=== PATIENT | female | born 1965 | race Caucasian/White ===

== ENCOUNTER 2017-01-20 19:00 | Inpatient (IN) | payer BC ==
[~2017-01-20] VITALS: Ht 170.2 cm; Wt 105.4 kg
--- NOTE | ~2017-01-20 | DS ---
PATIENT'S NAME: BRYNN CAM [facility] AGE: 51 Y [address] ROOM: [place] [id number] LOCATION: GPCU ADMIT DATE: 01/20/2017 Discharge Summary DISCHARGE DATE: 01/22/2017 FAMILY PHYSICIAN: PHYSICIAN, NO ATTENDING PHYSICIAN: Sanchez Justin PRIMARY DIAGNOSES: 1. Acute encephalopathy. 2. Acute kidney injury. 3. Essential hypertension. 4. Chronic pain syndrome. 5. Fibromyalgia. 6. Morbid obesity. 7. Moderate protein-calorie malnutrition. 8. Depression/anxiety. 9. Chronic constipation. 10. Gastroesophageal reflux disease. 11. Seasonal allergies. OPERATIONS/PROCEDURES: Right upper quadrant abdominal ultrasound performed on 01/21/2017. HISTORY OF PRESENTING ILLNESS AND REASON FOR ADMISSION: Please refer to the H and P dictated on 01/20/2017. HOSPITAL COURSE: The patient was admitted to the hospital as noted above with a presumptive diagnosis of acute encephalopathy and acute kidney injury. She was hemodynamically stable over the course of her hospital stay. At the point of her evaluation, there was concern for a cholestatic process, although imaging studies were not suggestive of cholelithiasis or acute cholecystitis. Right upper quadrant abdominal ultrasound demonstrated a distended gallbladder but no evidence for obstruction. Liver function tests were within normal limits. She received IV fluids and supportive cares. Her home opioid regimen was withheld at least initially. She received aggressive IV fluids, and her renal function improved. By the third day of her hospital stay, her creatinine had resolved to 2.0, and she is making good amounts of urine. Although her blood pressures were a little bit labile, she was ultimately placed back on Losartan. There was some clinical suspicion for inadvertent medication overdose. I had confronted the patient about that, and she insisted that she did not PATIENT'S NAME: BRYNN CAM [facility] AGE: 51 Y [address] ROOM: [place] [id number] LOCATION: GPCU ADMIT DATE: 01/20/2017 Discharge Summary DISCHARGE DATE: 01/22/2017 FAMILY PHYSICIAN: , NO ATTENDING PHYSICIAN: Sanchez Justin intentionally take the medications to cause self-harm. It was recommended that the fentanyl dose be reduced to 25 mcg, and she tolerated that fairly well. She was placed back on her home regimen of [place] but also at a lower dose. She was strongly recommended for no nonsteroidal antiinflammatory drugs. By the end of the third day of her hospital stay, it was felt she would be stable enough for discharge home with plans for close clinical followup with her primary care provider, Dr. Zambrano, as well as to assume followup at a [facility]. DISCHARGE INSTRUCTIONS: DIET: Regular as tolerated. ACTIVITY: As tolerated. MEDICATIONS: 1. Amitriptyline 25 mg p.o. q.h.s. 2. Amlodipine 10 mg p.o. daily. 3. Fentanyl patch 25 mcg apply and change q.72 hours. 4. Fluoxetine 40 mg p.o. daily. 5. Fluticasone one spray each nostril daily. 6. Symbicort 160/4.5 two puffs p.o. b.i.d. 7. Gabapentin 300 mg p.o. t.i.d. 8. Singulair 10 mg p.o. q.h.s. 9. Omeprazole 20 mg p.o. daily. 10. Spiriva 1 puff daily. 11. [place] 5/325 one tab p.o. q.6 hours p.r.n. pain. 12. MiraLax 17 g p.o. daily. 13. Fluocinolone topical applied topically 3 times a day as needed. 14. Losartan 50 mg p.o. daily. 15. Albuterol HFA 2 puffs p.o. q.6 hours p.r.n. pain. 16. Depo-Provera 150 mg IM q.3 months. FOLLOWUP: She will follow up with Dr. Laura (or Dr. Zambrano) in 3 to 5 days. She will have a repeat BMP to be followed up at the [facility]. We will also establish care at the [facility] in [place] within the next two weeks. CONDITION ON DISCHARGE: Fair. Total time spent on discharge process 45 minutes. PATIENT'S NAME: BRYNN CAM [facility] AGE: 51 Y [address] ROOM: [place] [address] LOCATION: GPCU ADMIT DATE: 01/20/2017 Discharge Summary DISCHARGE DATE: 01/22/2017 FAMILY PHYSICIAN: PHYSICIANMORGAN ATTENDING PHYSICIAN: Sanchez Justin DILMA MD CELESTINO PICHARDO/neryl /[id number] d: 01/23/17 0423 t: 01/25/17 1726, DISCHARGE SUMMARY
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
[2017-01-20] MEDS ORDERED: IBUPROFEN800 MG PO (20:23)
[2017-01-20] MEDS ORDERED: PROZAC20 MG PO (20:23)
[2017-01-20] MEDS ORDERED: ATIVAN 1 MG1 MG PO ×2 (20:24)
[2017-01-20] MEDS ORDERED: LASIX20 MG PO (20:25)
[2017-01-20] MEDS ORDERED: SKELAXIN800 MG PO (20:26)
[2017-01-20] MEDS ORDERED: NORVASC10 MG PO (20:27)
[2017-01-20] MEDS ORDERED: MIRALAX17 GM PO (20:27)
[2017-01-20] MEDS ORDERED: SINGULAIR10 MG PO (20:28)
[2017-01-20] MEDS ORDERED: FLUOCINOLONE AC60 ML TOP (20:29)
[2017-01-20] MEDS ORDERED: COZAAR100 MG PO (20:30)
[2017-01-20] MEDS ORDERED: HYDRODIURIL25 MG PO (20:30)
[2017-01-20] MEDS ORDERED: SPIRIVA HANDIHA1 KIT INH (20:31)
[2017-01-20] MEDS ORDERED: PRILOSEC20 MG PO (20:31)
[2017-01-20] MEDS ORDERED: SYMBICORT 16010.2 GM INH (20:32)
[2017-01-20] MEDS ORDERED: FLONASE 50 MCG/16 GM NOSE (20:32)
[2017-01-20] MEDS ORDERED: PROVENTIL OR V6.7 GM INH ×2 (20:33→20:34)
[2017-01-20] MEDS ORDERED: DESYREL100 MG PO (20:35)
[2017-01-20] MEDS ORDERED: DEPO-PROVE150 MG/11 IM (20:40)
[2017-01-20 20:55] LABS: BASOPHIL % 0.5 %; EOSINOPHIL # 0.2 K/uL (0.0-0.5); EOSINOPHIL % 3.3 %; HEMATOCRIT 27.4 % (33.0-46.0); LYMPHOCYTE # 1.1 K/uL (0.8-4.0); LYMPHOCYTE % 16.6 %; MCH 29.8 pg (27.0-34.0); MCHC 32.8 gm/dL (32.0-36.5); MCV 90.7 fl (83.0-98.0); MONOCYTE # 0.5 K/uL (0.0-1.0); MONOCYTE % 8.3 %; MPV 8.8 fl (9.4-12.4); NEUTROPHIL # (ANC) 4.5 K/uL (1.8-7.8); NEUTROPHIL % 71.3 %; NRBC % 0 /100WBC (0-0.00); PLATELET COUNT 193 K/uL (150-450); RBC 3.02 M/uL (3.50-5.50); RDW-CV 13.2 % (11.9-14.6); WBC 6.4 K/uL (4.0-11.0)
[2017-01-20 21:10] LABS: ALBUMIN 3.2 gm/dL (3.5-5.0); ANION GAP 14.7 (10.0-19.0); CALCIUM 7.7 mg/dL (8.5-10.5); MAGNESIUM 2.4 mg/dL (1.8-2.6); PHOSPHORUS 5.2 mg/dL (2.5-4.9); POTASSIUM 3.7 mMol/L (3.7-5.1); TOTAL BILIRUBIN 0.3 mg/dL (0.0-1.5); TOTAL PROTEIN 6.5 g/dL (6.0-8.4)
[2017-01-20 21:11] LABS: CREATININE 5.4 mg/dL (0.5-1.1)
[2017-01-21 05:51] LABS: BASOPHIL % 0.6 %; EOSINOPHIL # 0.2 K/uL (0.0-0.5); EOSINOPHIL % 4.3 %; HEMATOCRIT 27.4 % (33.0-46.0); HEMOGLOBIN 8.9 g/dL (10.0-15.0); IMMATURE GRANULOCYTE % 0.4 %; LYMPHOCYTE # 1.1 K/uL (0.8-4.0); LYMPHOCYTE % 22.3 %; MCH 29.4 pg (27.0-34.0); MCHC 32.5 gm/dL (32.0-36.5); MCV 90.4 fl (83.0-98.0); MONOCYTE # 0.6 K/uL (0.0-1.0); MONOCYTE % 11.8 %; MPV 8.8 fl (9.4-12.4); NEUTROPHIL # (ANC) 2.9 K/uL (1.8-7.8); NEUTROPHIL % 60.6 %; NRBC % 0 /100WBC (0-0.00); PLATELET COUNT 189 K/uL (150-450); RBC 3.03 M/uL (3.50-5.50); WBC 4.9 K/uL (4.0-11.0)
[2017-01-21 06:10] LABS: ANION GAP 12.6 (10.0-19.0); CALCIUM 7.8 mg/dL (8.5-10.5); CREATININE 3.9 mg/dL (0.5-1.1); POTASSIUM 3.6 mMol/L (3.7-5.1)
[2017-01-21] MEDS ORDERED: NEURONTIN300 MG PO (11:11)
[2017-01-21] MEDS ORDERED: ELAVIL25 MG PO (11:12)
[2017-01-21] MEDS ORDERED: NORCO 10-325 T1 EACH PO (11:12)
[2017-01-21] MEDS ORDERED: DURAGESIC 100100 MCG TRANS (11:12)
[2017-01-22 04:11] LABS: BASOPHIL % 0.7 %; EOSINOPHIL # 0.2 K/uL (0.0-0.5); EOSINOPHIL % 4.9 %; HEMATOCRIT 27.2 % (33.0-46.0); HEMOGLOBIN 9.1 g/dL (10.0-15.0); IMMATURE GRANULOCYTE % 0.2 %; LYMPHOCYTE # 1.5 K/uL (0.8-4.0); LYMPHOCYTE % 32.7 %; MCH 29.4 pg (27.0-34.0); MCHC 33.5 gm/dL (32.0-36.5); MONOCYTE # 0.5 K/uL (0.0-1.0); MONOCYTE % 11.4 %; MPV 9.2 fl (9.4-12.4); NEUTROPHIL # (ANC) 2.2 K/uL (1.8-7.8); NEUTROPHIL % 50.1 %; NRBC % 0 /100WBC (0-0.00); PLATELET COUNT 208 K/uL (150-450); RBC 3.09 M/uL (3.50-5.50); RDW-CV 12.9 % (11.9-14.6); WBC 4.5 K/uL (4.0-11.0)
[2017-01-22 04:25] LABS: ALBUMIN 2.8 gm/dL (3.5-5.0); ANION GAP 11.5 (10.0-19.0); CALCIUM 8.4 mg/dL (8.5-10.5); PHOSPHORUS 2.8 mg/dL (2.5-4.9); POTASSIUM 3.5 mMol/L (3.7-5.1)
== END 2017-01-22 15:10 | disposition disaster alternative care site (69) | DRG 682 ==
LOC: GPCU 19:13
PROVIDERS: Family Medicine; Internal Medicine; ADMIT Internal Medicine
PROC: 3E0234Z Introduction of Serum, Toxoid and Vaccine into Muscle, Percutaneous Approach (ICD-10-PCS; principal; 2017-01-22)
DX: N17.9 Acute kidney failure, unspecified (principal); G93.40 Encephalopathy, unspecified; J96.00 Acute respiratory failure, unspecified whether with hypoxia or hypercapnia; E44.0 Moderate protein-calorie malnutrition; E87.2 Acidosis; D64.9 Anemia, unspecified; F17.200 Nicotine dependence, unspecified, uncomplicated; F41.9 Anxiety disorder, unspecified; G89.29 Other chronic pain; M79.7 Fibromyalgia; R41.82 Altered mental status, unspecified; R44.1 Visual hallucinations; Z23 Encounter for immunization; J30.2 Other seasonal allergic rhinitis; K21.9 Gastro-esophageal reflux disease without esophagitis; K59.09 Other constipation; Z68.36 Body mass index [BMI] 36.0-36.9, adult; I12.9 Hypertensive chronic kidney disease with stage 1 through stage 4 chronic kidney disease, or unspecified chronic kidney disease; E11.22 Type 2 diabetes mellitus with diabetic chronic kidney disease; N18.9 Chronic kidney disease, unspecified
CPT/HCPCS: G0008; J1644; J7030; J7120